=== PATIENT | female | born 2000 | race Caucasian/White ===

== ENCOUNTER 2022-07-25 01:36 | Emergency (ER) | payer OTHER ==
[2022-07-25 01:55] VITALS: BP 130/83; PULSE 86
[2022-07-25] MEDS ORDERED: Ondansetron 4 MG Tab.DIS PO ONE (02:11)
[2022-07-25] MEDS ORDERED: Ibuprofen 600 MG Tab PO ONE (02:11)
[2022-07-25] MEDS ORDERED: HYDROmorphone 1 MG/ML Syringe IM ONE (02:14)
== END 2022-07-25 02:32 | disposition home or self-care (01) ==
LOC: JD.ED 01:36
DX: N20.1 Calculus of ureter (principal); E66.9 Obesity, unspecified; Z68.30 Body mass index [BMI] 30.0-30.9, adult
CPT/HCPCS: 96372; 99283; 99284; A9270-GY; J1170